=== PATIENT | female | born 1985 | race Two or more races ===

== ENCOUNTER 2020-05-09 13:57 | Emergency (ER) | payer OTHER ==
[~2020-05-09] VITALS: Ht 154.9 cm; Wt 113.4 kg
== END 2020-05-09 18:13 | disposition home or self-care (01) ==
LOC: ER 13:57
DX: U07.1 COVID-19 (principal); K52.89 Other specified noninfective gastroenteritis and colitis; A05.9 Bacterial foodborne intoxication, unspecified